=== PATIENT | female | born 1970 | race Caucasian/White ===

== ENCOUNTER 2019-01-31 10:11 | Day surgery (SDC) | payer SELFPAY ==
[2019-01-30 16:51] VITALS: BMI 20.6
[2019-01-31] MEDS ORDERED: GENTAMICIN SO4 80 MG/2 ML VIAL ONE (10:48)
[2019-01-31] MEDS ORDERED: LIDOCAINE 1%-EPI 1:100,000 30 ML MDV IJ ONE (10:48)
[2019-01-31] MEDS ORDERED: ceFAZolin SODIUM 1 GM VIAL ONE (10:48)
[2019-01-31] MEDS ORDERED: BUPIVACAINE HCL/PF 0.5% (5MG/ML) 10 ML VIAL ONE (10:48)
[2019-01-31] MEDS ORDERED: PROPOFOL 20 ML ONE ×2 (11:04)
[2019-01-31] MEDS ORDERED: MIDAZOLAM HCL 2 MG/2 ML SINGLE DOSE VIAL ONE (11:05)
[2019-01-31] MEDS ORDERED: LIDOCAINE HCL/PF 2% SDV 5ML VIAL ONE (11:06)
[2019-01-31] MEDS ORDERED: ceFAZolin SODIUM 1 GM VIAL IVPB ONE (11:34)
[2019-01-31] MEDS ORDERED: ePHEDrine SULFATE 50 MG/1 ML AMPULE ONE (11:45)
[2019-01-31] MEDS ORDERED: LIDOCAINE 1%/EPI 1:100000 (20 ML MULTI DOSE VIAL) IJ ONE (11:47)
[2019-01-31] MEDS ORDERED: BUPIVACAINE HCL/PF 0.25% (2.5MG/ML) 10 ML VIAL ONE (12:04)
[2019-01-31] MEDS ORDERED: BUPIVACAINE LIPOSOME/PF (EXPAREL) 266 MG/20 ML VIAL ONE (12:04)
[2019-01-31] MEDS ORDERED: BUPIVACAINE LIPOSOME/PF (EXPAREL) 266 MG/20 ML VIAL NR ONE (12:22)
[2019-01-31] MEDS ORDERED: BUPIVACAINE HCL/PF 0.25% (2.5MG/ML) 10 ML VIAL IJ ONE (12:22)
[2019-01-31] MEDS ORDERED: PROMETHAZINE HCL 25 MG/1 ML VIAL IVPB PRN (13:41)
[2019-01-31] MEDS ORDERED: ONDANSETRON 4 MG/2 ML VIAL IVPUSH PRN (13:41)
[2019-01-31] MEDS ORDERED: oxyCODONE HCL 5 MG TABLET PO PRN ×2 (13:41)
--- NOTE | 2019-01-31 13:46 | OP ---
Operative Note - Note: Operative Date: 01/31/19 Pre-Operative Diagnosis: Mechanical complication of breast implants Operation: Bilateral capsuectomy removal and replacement of breast implants Implants: Sientra SR 435 mod plus (2) Surgeon: Ras Sims Anesthesiologist/EARRINGS FABRICATOR: Iftikhar Weir Anesthesia: General Specimens Removed: capsule Estimated Blood Loss (mls): 20 Operative Report Dictated: Yes
[2019-01-31 15:18] VITALS: TEMP 98.7
--- NOTE | 2019-01-31 16:47 | OP ---
DATE OF OPERATION: 01/31/2019 SURGEON: Philippe Sims M.D. PREOPERATIVE DIAGNOSIS: 1. 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 2. Asymmetry of chest wall status post trauma. POSTOPERATIVE DIAGNOSIS: 1. 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 2. Asymmetry of chest wall status post trauma. OPERATIVE INDICATION: Patient is a 48-year-old white female who presented to [place] a few weeks prior to this procedure with a history of an equestrian injury where she was knocked to the ground by her horse and it stepped onto her chest, causing a fracture of the sternal area. She then noted the deflation of the volume of the right breast, and presented with asymmetry of the chest wall. The risks and benefits of surgical versus nonsurgical alternatives as well as material complication were described to the patient on multiple occasions preoperatively. This injury occurred in August, but the asymmetry fully appeared with probable deflation of the breast implant. Patient previously had saline implants placed. All questions were asked and answered. The patient agreed to the planned procedure. She was marked in the holding area with the knowledge of the outline using the previous incisions and procedure itself. OPERATIVE PROCEDURE IN DETAIL: The patient was taken to the operating room, and after induction of general anesthesia in the supine position, both arms were extended and padded. Venodyne boots were placed. The entire chest wall was prepped with ChloraPrep solution over its entire extent, and drapes were placed with an Ioban sterile dressing. At this point, attention was turned to the previous augmentation scars at the inframammary fold. These were injected with 1 mL of dilute epinephrine solution with lidocaine and then an incision was made down to the skin and subcutaneous tissue on the right breast through the subcutaneous tissue down to the underlying capsule of the implant. The capsule was then opened along the course of the incision, and the right breast implant was removed. Upon examining the implant, a textured saline device was seen and old style implant was removed and sent for diagnosis. No evidence of rupture was seen. No evidence of capsular lesions was seen amongst the capsule itself. Portions of the capsule were then removed and discarded. No evidence seromatous fluid was seen within the pocket itself. The entire capsule was examined, and laterally the capsule was contracted using the popcorn technique. Copious irrigation of the pocket was carried out using triple antibiotic solution and Betadine. The left breast was then attended to, opening the pocket in the same fashion and performing capsulotomy. The left breast implant was removed also showed to be intact, also a textured saline device. Again, the same space was carried out. This breast showed some capsular contracture evidence along the inframammary and medial course of the breast. These capsular areas were removed and discarded. At this point copious irrigation of the wound with Betadine and capsulotomy was performed especially on the left breast medially along the sternal area which showed an elevation toward the sternum and edge of the capsule. Tissues were then elevated meticulously throughout. Hemostasis was meticulously obtained at the pocket, and then new implants were chosen. A sizer was placed into the pocket of 435 mL and inflated slowly to examine different size possibilities. Decision was made at that point to use a 435 mL moderate plus profile implant to provide more medial projection and better symmetry. A capsulorrhaphy was required on the left breast along the lateral gutter using both the popcorn technique and 0 V-Loc suture in a running 3-layer fashion along the lateral portion of the breast. Once this capsulorrhaphy was accomplished, the Sientra 435 mL moderate plus profile implant was placed into the right breast and left breast pockets using the Gonzalez funnel. Copious irrigation and cleansing of the wound with Betadine and triple antibiotic solution was carried out, and then the wound after symmetry was achieved was closed using 3-0 PDS suture on the deep tissue and running double layer of 3-0 V-Loc Monoderm was placed into the skin. Good shape and contour was seen in the sitting position. Patient tolerated the procedure well. The wounds were closed with Dermabond and Steri-Strip dressings, and the patient after being awakened was placed into the Surgi-Bra. She was transferred to the recovery room in satisfactory condition. PHILIPPE SIMS M.D. [id number]
[2019-01-31 17:02] VITALS: BP 111/69; PULSE 71
--- NOTE | 2019-02-03 11:16 | PATH ---
Surgical Pathology Report Patient Name: ELMER ROBB Med. Rec. #: [id number] /Age/Gender: 1970 (Age: 48) / F Account: [id number] Location: [facility] SURGICAL Taken: 01/31/2019 Received: 01/31/2019 Reported: 02/03/2019 Physicians: Ras Sims Specimen(s) Received BILATERAL BREAST IMPLANT Clinical History Bilateral breast implant exchange Final Diagnosis EDUCATION PARAPROFESSIONAL, BILATERAL BREAST, REMOVAL: TWO BREAST IMPLANTS (GROSS ONLY). Electronically Signed Cornel Weber M.D. Gross Description Received fresh labeled "bilateral breast implants," are 2 nina, rubbery, intact breast implant averaging 12 cm in diameter and 3 cm in depth. No soft tissue is present. No sections are submitted, gross only. DL/01/31/2019 saudi01/31/2019
== END 2019-01-31 16:55 | disposition home or self-care (01) ==
LOC: JASU-SURG 10:11
PROVIDERS: ATTEND Plastic Surgery
CPT/HCPCS: 84703; 88300-TC; 94760

== ENCOUNTER → 2019-03-31 | Day surgery (SDC) | payer OTHER | END | disposition home or self-care (01) | LOC: JRADUS-SUR 10:30 → JRADUS 10:30 | PROVIDERS: ATTEND Plastic Surgery | PROC: BH40ZZZ Ultrasonography of Right Breast (ICD-10-PCS; principal; 2019-03-31) | DX: N63.10 Unspecified lump in the right breast, unspecified quadrant (principal); Z98.82 Breast implant status | CPT/HCPCS: 76641-TC-RT ==